=== PATIENT | male | born 1985 | race American Indian/Alaskan Native ===

== ENCOUNTER 2021-08-24 08:36 | Day surgery (SDC) | payer OTHER ==
[~2021-08-24 08:36] MED LIST: LACTATED RINGERS 1,000 ML IV SCH; ceFAZolin/Water 2 GM/20 ML 2 GM/20 ML SYRINGE IV NR
[2021-08-24] MEDS ORDERED: MIDAZOLAM 2 MG/2 ML INJ IV NR (09:00)
--- NOTE | 2021-08-24 09:13 | Anesthesia Consultation ---
Anesthesia Consult and Med Hx - Airway Anesthetic Teeth Evaluation: Good ROM Head & Neck: Adequate Mental/Hyoid Distance: Adequate Mallampati Class: Class II Intubation Access Assessment: Good - Pulmonary Exam CTA: Yes - Cardiac Exam Cardiac Exam: RRR - Pre-Operative Health Status ASA Pre-Surgery Classification: ASA1 Proposed Anesthetic Plan: General (Labs and chart reviewed. All questions answered) - Pulmonary Hx Smoking: Yes (STOPPED SMOKING JANUARY 2021) Hx Sleep Apnea: No - Central Nervous System Hx Psychiatric Problems: Yes (PTSD) - Other Systems Hx Alcohol Use: Yes (SOCIALLY) Hx Substance Use: No Hx Cancer: No
--- NOTE | 2021-08-24 09:14 | Anesthesia Day of Surgery ---
Anesthesia Day of Surgery - Day of Surgery Patient Examined: Yes Patient H&P Reviewed: Yes Patient is NPO: Yes
[2021-08-24] MEDS ORDERED: HYDROmorphone 1 MG/1 ML INJ IV PRN ×2 (09:23)
[2021-08-24] MEDS ORDERED: oxyCODONE /ACETAMINOPHEN 5-325MG TAB PO PRN (09:23)
[2021-08-24] MEDS ORDERED: NALOXONE 0.4 MG/1 ML INJ IV PRN (10:00)
[2021-08-24] MEDS ORDERED: MEPERIDINE 25 MG/1 ML INJ IV PRN (10:00)
[2021-08-24] MEDS ORDERED: ONDANSETRON 4 MG/2 ML INJ IV PRN (10:00)
[2021-08-24] MEDS ORDERED: ONDANSETRON 4 MG/2 ML INJ ONE (11:05)
[2021-08-24] MEDS ORDERED: fentaNYL 100 MCG/2 ML INJ ONE ×2 (11:05→11:49)
[2021-08-24] MEDS ORDERED: dexAMETHasone 20 MG/5 ML VIAL ONE (11:05)
[2021-08-24] MEDS ORDERED: LIDOCAINE MPF (2%) 20 MG/1 ML VIAL 5 ML ONE (11:05)
[2021-08-24] MEDS ORDERED: ROCURONIUM 50 MG/5 ML INJ IV ONE (11:05)
[2021-08-24] MEDS ORDERED: propofoL 200 MG/20 ML VIAL IV ONE ×2 (11:06→11:09)
[2021-08-24] MEDS ORDERED: MIDAZOLAM 2 MG/2 ML INJ ONE (11:09)
[2021-08-24] MEDS ORDERED: METHYLENE BLUE 50 MG/10 ML AMP ONE (11:22)
[2021-08-24] MEDS ORDERED: BUPIVACAINE/PF (0.5%) 5 MG/1 ML 30 ML VIAL INFILTRATI ONE ×2 (11:51→11:59)
[2021-08-24] MEDS ORDERED: SODIUM CHLORIDE 0.9% IRR 1,500 ML BOTTLE IR ONE (11:59)
[2021-08-24] MEDS ORDERED: METHYLENE BLUE 50 MG/10 ML AMP IV ONE (11:59)
[2021-08-24] MEDS ORDERED: HYDROmorphone 1 MG/1 ML INJ ONE (12:12)
[2021-08-24] MEDS ORDERED: GLYCOPYRROLATE 0.4 MG/2 ML INJ ONE ×2 (12:22)
--- NOTE | 2021-08-24 13:28 | Post Anesthesia Evaluation ---
- Post Anesthesia Evaluation Patient Participated: Yes Airway Patent: Yes Stable Respiratory Function: Yes Nausea/Vomiting: No Temp > 96.8F: Yes Pain Manageable: Yes Adequeate Hydration: Yes Anesthesia Complications: No
--- NOTE | 2021-08-24 14:55 | Short Stay Summary ---
Short Stay Documentation Date of service: 08/24/21 - History Principal diagnosis: Pilonidal cyst with fistula H&P: obtained from office Past Medical History: No medical history Past Surgical History: No surgical history Social history: no significant social history - Allergies and Medications Current Medications: Allergies No Known Allergies Allergy (Unverified 08/21/21 14:16) Home Medications Medication Instructions Recorded Confirmed Last Taken Type No Known Home Medications [No 08/21/21 08/21/21 Unknown History Reported Home Medications] Active Medications Hydromorphone HCl (Hydromorphone 1 Mg/1 Ml Inj) 0.5 mg IV Q10MIN PRN PRN Reason: Pain , Severe (7-10) Stop: 08/24/21 23:00 Hydromorphone HCl (Hydromorphone 1 Mg/1 Ml Inj) 0.25 mg IV Q10MIN PRN PRN Reason: Pain, Moderate (4-6) Stop: 08/24/21 23:00 Cefazolin Sodium (Ancef/Sterile Water 2 Gm/20 Ml) 2 gm in 20 mls @ 80 mls/hr IV PREOP NR; Protocol Stop: 08/24/21 23:01 Lactated Ringer's (Lactated Ringers) 1,000 mls @ 42 mls/hr IV DIRECT MARLIN Last Admin: 08/24/21 09:30 Dose: 42 mls/hr Midazolam HCl (Midazolam 2 Mg/2 Ml Inj) 2 mg IV PREOP NR Stop: 08/24/21 23:59 Naloxone HCl (Naloxone 0.4 Mg/1 Ml Inj) 0.1 mg IV Q2MIN PRN PRN Reason: Res Rate </= 8 or 02 SAT < 92% Ondansetron HCl (Ondansetron 4 Mg/2 Ml Inj) 4 mg IV ONCE PRN PRN Reason: Nausea And Vomiting - Physical exam General appearance: no acute distress Integumentary: no rash HEENT: Atraumatic Lungs: Clear to auscultation Heart: Regular rate Gastrointestinal: normal, normoactive bowel sounds Extremities: no ischemia, No edema - Brief post op/procedure progress note Date of procedure: 08/24/21 Pre-op diagnosis: Pilonidal cyst with fistula Post-op diagnosis: same Procedure: Excision of pilonidal cyst and fistula Anesthesia: GETA Surgeon: BACILIO MAY FLORENCE Estimated blood loss: minimal Pathology: list (Pilonidal cyst with fistulous tract) - Disposition Condition at discharge: Good Disposition: 01 HOME / SELF CARE / HOMELESS Short Stay Discharge Plan Activity: other Weight Bearing Status: Full Weight Bearing Diet: regular Wound: other (May shower tomorrow) Follow up with: [facility] [Primary Care Provider] - 7 Days Forms: Outpatient Surgery DC Inst. Prescriptions: Acetaminophen/Codeine [Tylenol /Codeine # 3 tab] 1 tab PO Q6H PRN 10 Days #20 tab NS PRN Reason: Pain , Severe (7-10)
[2021-08-24] MEDS ORDERED: ACETAMINOPHEN W/CODEINE 300-30 MG TAB PO PRN (15:02)
--- NOTE | 2021-08-24 15:09 | Operative Report ---
Operative Report Operative Report: Date of procedure: 08/24/2021 Preop diagnosis: Pilonidal cyst and fistula Postop diagnosis: Same Procedure: Excision of pilonidal cyst and fistula Surgeon: Dr. Arshad Anesthesia: General endotracheal anesthesia Specimen: Pilonidal cyst and fistula tract Estimated blood loss: 50 cc Findings: This patient has a diagnosis of pilonidal cyst with fistula tract with multiple prior infections. He is taken to the OR under general endotracheal anesthesia placed in a prone position. Timeouts and consents are on the chart. Patient received 2 g of Ancef IV. The area of the pilonidal cyst is prepped with Betadine and draped in a sterile fashion. The opening of the fistula is cannulated with an Angiocath catheter and injected with less than a half a cc of methylene blue. A scalpel was then used to make a elliptical incision through the skin. Electrocautery was used to dissect the pilonidal cyst and all of the associated fistula tract. The wound is irrigated copious amounts of saline. Wound is closed with 2-0 Vicryl for the subcutaneous tissue. 4-0 Monocryl was used for the skin. Dermabond was used over this. A pressure dressing is placed over the the incision.
[2021-08-24 16:30] VITALS: BP 145/86
== END 2021-08-24 15:35 | disposition home or self-care (01) ==
LOC: OR 08:36
PROVIDERS: ATTEND Surgery
DX: L05.91 Pilonidal cyst without abscess (principal); M19.90 Unspecified osteoarthritis, unspecified site; F32.9 Major depressive disorder, single episode, unspecified; F41.9 Anxiety disorder, unspecified; Z72.89 Other problems related to lifestyle; Z87.891 Personal history of nicotine dependence; Z79.899 Other long term (current) drug therapy; Z98.890 Other specified postprocedural states
CPT/HCPCS: 11770; 88304; J0690; J1100; J1170; J1815; J2250; J2405; J2704; J3010; J3490; J7120; Q9968